=== PATIENT | male | born 1975 ===

== ENCOUNTER 2021-04-23 06:52 | Day surgery (SDC) | payer OTHER ==
[2021-04-23] MEDS ORDERED: MELOXICAM15 MG PO (09:12)
== END 2021-04-23 12:20 | disposition home or self-care (01) ==
LOC: CIR.AMB 06:52
PROVIDERS: ATTEND Surgery
DX: N47.1 Phimosis (principal); Z20.822 Contact with and (suspected) exposure to COVID-19